=== PATIENT | female | born 2000 | race Caucasian/White ===

== ENCOUNTER 2019-12-29 11:16 | Emergency (ER) | payer MEDICAID ==
[~2019-12-29] VITALS: Ht 167.6 cm; Wt 93.0 kg
[2019-12-29 11:18] VITALS: BP 131/75
== END 2019-12-29 11:27 ==
LOC: ED 11:21
DX: J06.9 Acute upper respiratory infection, unspecified (principal)
CPT/HCPCS: 99283

== ENCOUNTER 2020-03-09 14:33 | Emergency (ER) | payer MEDICAID ==
[~2020-03-09] VITALS: Ht 167.6 cm; Wt 97.8 kg
[2020-03-09 14:35] VITALS: BP 109/59
--- NOTE | 2020-03-09 15:22 | NUR ---
Patient/Caregiver given discharge instructions and they have confirmed that they understand the instructions. Patient ambulatory with steady gait.
== END 2020-03-09 15:23 | disposition home or self-care (01) ==
LOC: ED 15:05
DX: R10.84 Generalized abdominal pain (principal)
CPT/HCPCS: 99281

== ENCOUNTER 2020-07-02 16:44 | Emergency (ER) | payer MEDICAID ==
[~2020-07-02] VITALS: Ht 167.6 cm; Wt 93.6 kg
[2020-07-02 16:45] VITALS: BP 111/61
[2020-07-02 17:22] LABS: MICROSCOPIC INDICATED
[2020-07-02 17:35] LABS: BASOPHILS % (AUTO) 1 % (0-1); EOSINOPHILS % (AUTO) 1 % (1-7); LYMPHOCYTES % (AUTO) 28 % (22-44); MEAN CORPUSCULAR HEMOGLOBIN 28.6 pg (27.0-34.8); MEAN CORPUSCULAR HGB CONC 33.8 g/dL (32.4-35.8); MEAN PLATELET VOLUME 9.2 fL (7.4-10.4); MONOCYTES % (AUTO) 7 % (2-9); NEUTROPHILS % (AUTO) 64 % (42-75); PLATELET COUNT 275 x10^3/uL (130-400); RED BLOOD COUNT 5.19 x10^6/uL (3.82-5.3)
[2020-07-02 17:37] LABS: MD NO
[2020-07-02 17:53] LABS: ALBUMIN 3.6 g/dL (3.4-5.0); ANION GAP 4 mmol/L (5-15); CALCIUM 8.7 mg/dL (8.5-10.1); CHLORIDE 108 mmol/L (98-107)
[2020-07-02 18:10] LABS: ALANINE AMINOTRANSFERASE 19 U/L (12-78); ALKALINE PHOSPHATASE 62 U/L (45-117); BILIRUBIN,TOTAL 0.3 mg/dL (0.2-1.0); CREATININE 0.73 mg/dL (0.55-1.02); TOTAL PROTEIN 7.4 g/dL (6.4-8.2)
== END 2020-07-02 18:44 | disposition home or self-care (01) ==
LOC: ED 18:33
DX: O23.11 Infections of bladder in pregnancy, first trimester (principal); R10.30 Lower abdominal pain, unspecified; Z3A.01 Less than 8 weeks gestation of pregnancy
CPT/HCPCS: 36415; 76801; 80053; 81001; 84702; 85025; 87086; 99284

== ENCOUNTER 2020-07-08 10:31 | Emergency (ER) | payer MEDICAID ==
[~2020-07-08] VITALS: Ht 167.6 cm; Wt 90.0 kg
--- NOTE | 2020-07-08 10:43 | NUR ---
PT CAME IN CO OF VOMITTING AND NAUSEA X 2-3 DAYS. PT STATES SHE IS ABOUT 6 WEEKS PREGANT. DENIES VB OR DISCHAGRE OF ABD PAIN. UA HAS BEEN PROVIDED. PT IS RESTING IN [facility]. ACCMPANIED BY BOYFRIEND.
[2020-07-08] MEDS ORDERED: PROMETHAZINE 25 MG/ML, 1ML IM ONE (11:00)
[2020-07-08] MEDS ORDERED: SODIUM CHLORIDE 0.9% 1,000ML IVBOLUS ONE (11:00)
[2020-07-08] MEDS ORDERED: PROMETHAZINE 25 MG/ML, 1ML ONE (11:10)
[2020-07-08 11:19] LABS: BASOPHILS % (AUTO) 1 % (0-1); EOSINOPHILS % (AUTO) 1 % (1-7); LYMPHOCYTES % (AUTO) 28 % (22-44); MEAN CORPUSCULAR HEMOGLOBIN 28.5 pg (27.0-34.8); MEAN CORPUSCULAR HGB CONC 34.3 g/dL (32.4-35.8); MEAN PLATELET VOLUME 9.7 fL (7.4-10.4); MONOCYTES % (AUTO) 5 % (2-9); NEUTROPHILS % (AUTO) 66 % (42-75); PLATELET COUNT 284 x10^3/uL (130-400); RED BLOOD COUNT 5.73 x10^6/uL (3.82-5.3)
[2020-07-08 11:27] LABS: MD NO
[2020-07-08 11:30] LABS: ALANINE AMINOTRANSFERASE 24 U/L (12-78); ALBUMIN 3.9 g/dL (3.4-5.0); ANION GAP 9 mmol/L (5-15); CALCIUM 9.3 mg/dL (8.5-10.1); CHLORIDE 108 mmol/L (98-107); CREATININE 0.75 mg/dL (0.55-1.02)
[2020-07-08 11:32] LABS: ALKALINE PHOSPHATASE 64 U/L (45-117); BILIRUBIN,TOTAL 0.9 mg/dL (0.2-1.0); TOTAL PROTEIN 8.1 g/dL (6.4-8.2)
[2020-07-08 11:56] VITALS: BP 109/61
== END 2020-07-08 12:38 | disposition home or self-care (01) ==
LOC: ED 11:43
DX: O21.1 Hyperemesis gravidarum with metabolic disturbance (principal); R19.7 Diarrhea, unspecified; Z3A.01 Less than 8 weeks gestation of pregnancy
CPT/HCPCS: 36415; 80053; 83690; 85025; 96360; 96372; 99283; J2550; J7030